=== PATIENT | female | born 1990 ===

== ENCOUNTER 2018-01-18 23:50 | Inpatient (IN) | payer BC, OTHER ==
--- NOTE | 2018-01-19 00:55 | OBHP ---
Datetime: 01/19/2018 00:13 IP Adm Impression: Term, intrauterine ; No Active Labor; Intact Membranes IP Admit Plan: Admit to unit; Initiate labor protocol IP Admit Plan Other: cervical ripening Admit Comment, IP Provider: 27 y.o. , LMP 04/18/17, ANA 01/23/18, EGA 39w 3d, c/o LBP- crampy; and lower abdominal pain both with onset yesterday; LAP - stronger at 1600 hours, pain scale 6/10. (+ ) AFM; denies LOF, although "my underwear was moist earlier". Denies VB. care: Dr. Namrata rose; uncomplicated. Last seen 01/17/18 - cervical exam = "I was a little less than 1 cm". 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 x 3 years; together x 10. Telemetry R.N. Fam Hx: Mother alive 45 y.o. Crohn's disease. Father alive 43 y.o. h/o ND. Kellie fam(+) DM. No kn own fam h/o cancer P.E.: as above. WD in NAD. Awake, alert, oriented to time, person and place. Pleasant and coopera tive. present Assessment: 27 y.o. P1, 39w 3d. Early labor. Category 1 tracing. D/W Dr. Namrata Cruz: concern PUP PS - pt c/o itching to abdomen 01/15; and decreased FM then. Did not keep F/U visit in 48 hours - hus band was hospitalized. Will admit for delivery; cervicl ripening. Patient agrees; no questions offer ed. Receptive to epidural for pain relief. Clinically stable. Plan: 1) Admit 2) NPO 3) IVFs 4) Admission labs 5) Continuous EFM 6) Cervidil 7) Epidural, upon request 8) Anticipate vaginal delivery - as per, and discussed with, Dr. Namrata Cruz Pelvic Type - PN: Adequate Extremities - PN: Normal Abdomen - PN: Normal Back - PN: Normal Breast - PN: Not Done Lungs - PN: Normal Heart - PN: Normal Neurologic - PN: Normal HEENT - PN: Normal General - PN: Normal Presentation-Admit: Vertex FHR - Baseline A Provider: 125 Contraction Comments Provider: irregular Comments, ACOG Physical Exam: Abdomen: Gravid. Soft. Non tender All other systems reviewed and are negative Gestation - Est Wks by US: 39w 3d EGA AdmitDate IP: 39.3 Vital Signs Provider: Reviewed; Within Normal Limits IP Indication for Induction: Other IP Indication for Induction Oth: Decresaed movement IP Chief Complaint: Uterine contractions NICHD Variability Prov Fetus A: Moderate 6-25bpm NICHD Accel Fetus A IP Provider: [id number] FHR Category Provider Fetus A: Category I NICHD Decel Fetus A IP Provider: None Dilatation, Provider: 2 Effacement, Provider: 20 Station, Provider: -3 Genitourinary Exam: Normal DTRs - PN: Normal
[2018-01-19] MEDS ORDERED: Lactated Ringer's 1,000 ML IV ONE (00:56)
[2018-01-19 00:57] VITALS: BMI 34.3
--- NOTE | 2018-01-19 00:59 | OBADHP ---
Datetime: 01/19/2018 00:13 IP Admit Plan Other: cervical ripening Admit Comment, IP Provider: 27 y.o. , LMP 04/18/17, ANA 01/23/18, EGA 39w 3d, c/o LBP- crampy; and lower abdominal pain both with onset yesterday; LAP - stronger at 1600 hours, pain scale 6/10. (+ ) AFM; denies LOF, although "my underwear was moist earlier". Denies VB. care: Dr. Namrata rose; uncomplicated. Last seen 01/17/18 - cervical exam = "I was a little less than 1 cm". 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 x 3 years; together x 10. Telemetry R.N. Fam Hx: Mother alive 45 y.o. Crohn's disease. Father alive 43 y.o. h/o [place]. Pat fam(+) DM. No kn own fam h/o cancer P.E.: as above. WD in NAD. Awake, alert, oriented to time, person and place. Pleasant and coopera tive. present Assessment: 27 y.o. P1, 39w 3d. Early labor. Category 1 tracing. D/W Dr. Namrata Cruz: concern PUP PS - pt c/o itching to abdomen 01/15; and decreased FM then. Did not keep F/U visit in 48 hours - [facility] band was hospitalized. Will admit for delivery; cervicl ripening. Patient agrees; no questions offer ed. Receptive to epidural for pain relief. Clinically stable. Plan: 1) Admit 2) NPO 3) IVFs 4) Admission labs 5) Continuous EFM 6) Cervidil 7) Epidural, upon request 8) Anticipate vaginal delivery - as per, and discussed with, Dr. Namrata Cruz Pelvic Type - PN: Adequate Extremities - PN: Normal Abdomen - PN: Normal Back - PN: Normal Breast - PN: Not Done Lungs - PN: Normal Heart - PN: Normal Neurologic - PN: Normal HEENT - PN: Normal General - PN: Normal Presentation-Admit: Vertex FHR - Baseline A Provider: 125 Contraction Comments Provider: irregular Comments, ACOG Physical Exam: Abdomen: Gravid. Soft. Non tender All other systems reviewed and are negative Gestation - Est Wks by US: 39w 3d Vital Signs Provider: Reviewed; Within Normal Limits IP Chief Complaint: Uterine contractions NICHD Variability Prov Fetus A: Moderate 6-25bpm NICHD Accel Fetus A IP Provider: [id number] FHR Category Provider Fetus A: Category I NICHD Decel Fetus A IP Provider: None Dilatation, Provider: 2 Effacement, Provider: 20 Station, Provider: -3 Genitourinary Exam: Normal DTRs - PN: Normal EGA AdmitDate IP: 39.3 IP Adm Impression: Term, intrauterine ; No Active Labor; Intact Membranes IP Admit Plan: Admit to unit; Initiate labor protocol
[2018-01-19] MEDS ORDERED: Lactated Ringer's 1,000 ML IV SCH (01:00)
[2018-01-19 01:33] LABS: BASO % 0.2 % (0.0-2.0); EOS # 0.1 K/uL (0.0-0.7); EOS % 0.9 % (0.0-4.0); HEMOGLOBIN 10.8 g/dL (11.0-16.0); LYMPH # 3.2 K/uL (1.0-4.3); LYMPH % 24.9 % (20.0-40.0); MEAN CELL VOLUME 84.2 fL (81.0-99.0); MEAN CORPUSCULAR HEMOGLOBIN 28.4 pg (27.0-31.0); MEAN CORPUSCULAR HGB CONC 33.7 g/dL (33.0-37.0); MEAN PLATELET VOLUME 9.8 fL (7.2-11.7); MONO # 1.2 K/uL (0.0-0.8); MONO % 9.1 % (0.0-10.0); NEUT # 8.4 K/uL (1.8-7.0); NEUT % 64.9 % (50.0-75.0); RBC 3.79 Mil/uL (3.80-5.20); RED CELL DISTRIBUTION WIDTH 15.2 % (11.5-14.5); WHITE BLOOD COUNT 12.9 K/uL (4.8-10.8)
[2018-01-19 01:39] LABS: SQUAMOUS EPITHIAL 5 /hpf (0-5); URINE BACTERIA OCC (<OCC); URINE BILIRUBIN NEGATIVE (NEGATIVE); URINE BLOOD NEGATIVE (NEGATIVE); URINE CLARITY Clear (Clear); URINE COLOR Yellow (YELLOW); URINE GLUCOSE (UA) NORMAL (Normal); URINE LEUKOCYTE ESTERASE 1+ Leu/uL (Negative); URINE PROTEIN NEGATIVE (NEGATIVE); URINE UROBILINOGEN NORMAL mg/dL (0.2-1.0)
[2018-01-19 01:56] LABS: URIC ACID 2.2 mg/dL (2.2-7.5)
[2018-01-19 02:16] LABS: INR 0.9; PROTHROMBIN TIME 10.2 SECONDS (9.7-12.2)
[2018-01-19] MEDS ORDERED: Fentanyl/Bupivacaine HCl 250 ML EPI ONE (03:05)
[2018-01-19] MEDS ORDERED: Oxytocin 20 units in LR 2,000 ML IV ONE (08:00)
--- NOTE | 2018-01-19 08:11 | OBDS ---
DELIVERY PERSONNEL Delivery Doctor: Aiden Cruz MD MATERNAL INFORMATION Delivery Anesthesia: Epidural Medications in Delivery: Pitocin RN Comments: to a live baby girl attended to by Massiel Carcamo RN and Provider Comments: pt was fully diltaed and pushing, atrumtaic, spontanoeus deliveyr of head, no nuc jarek cord noted. atrumatic, spontanoeus delivery of anterior followed yb posterir shulder followed by delivery of body. Baby handed to RN. Light meconium noted. Cord blood and cord gases collected adn s ent x 2. Sponatenous delivery of intact placent with membranes. fundus firm. first degree perienal la ceaiotn noted and repaired iwth 3-0 chormic. Good hemosis, no cmplciatons LIve female agpars 9,9 ebl 100 ml weight 5lbs 7 ounces LABOR SUMMARY EDC: 01/23/2018 00:00 No. Babies in Womb: 1 LABOR INFORMATION Cervical Ripening Agents: Cervidil Other Ripening Agents: INSERTED VAGINALLY BY INFANT INFORMATION BABY A Gestational Age at Delivery: 39.3 IDENTIFICATION/MEDS BABY A ID Band Number: [id number] Sensor Number: [id number] WEIGHT/LENGTH BABY A Birthweight (gms): 2480 Infant Weight (lb): 5 Infant Weight (oz): 7 Length Inches: 17.75 Length cms: 45.1
[2018-01-19] MEDS ORDERED: Oxycodone/Acetaminophen 5/325 mg Tab PO PRN ×2 (08:15)
[2018-01-19] MEDS ORDERED: Benzocaine/Menthol 20%-0.5% Topical Spray (60 ml) TOP PRN (08:15)
[2018-01-19] MEDS: Multiple Vitamins Tab PO SCH (11:03)
[2018-01-20 08:32] LABS: BASO # 0.1 K/uL (0.0-0.2); BASO % 0.5 % (0.0-2.0); EOS # 0.3 K/uL (0.0-0.7); EOS % 2.2 % (0.0-4.0); HEMOGLOBIN 10.8 g/dL (11.0-16.0); LYMPH # 2.9 K/uL (1.0-4.3); LYMPH % 23.5 % (20.0-40.0); MEAN CELL VOLUME 84.9 fL (81.0-99.0); MEAN CORPUSCULAR HEMOGLOBIN 28.3 pg (27.0-31.0); MEAN CORPUSCULAR HGB CONC 33.3 g/dL (33.0-37.0); MEAN PLATELET VOLUME 9.7 fL (7.2-11.7); MONO # 1.2 K/uL (0.0-0.8); MONO % 9.2 % (0.0-10.0); NEUT # 8.1 K/uL (1.8-7.0); NEUT % 64.6 % (50.0-75.0); RBC 3.83 Mil/uL (3.80-5.20); WHITE BLOOD COUNT 12.5 K/uL (4.8-10.8)
[2018-01-20] MEDS: Multiple Vitamins Tab PO SCH (09:54)
[2018-01-21 00:06] VITALS: O2SAT 98
[2018-01-21 08:14] VITALS: BP 112/77; RESP 18; TEMP 98.2
[2018-01-21] MEDS: Multiple Vitamins Tab PO SCH (09:14)
[2018-01-21 15:34] VITALS: PULSE 80
--- NOTE | 2018-01-23 15:38 | OBPPN ---
Datetime: 01/23/2018 15:37 PP Pain Prov: Within normal limits PP Nausea Prov: Denies PP Flatus Prov: Yes PP BM Prov: No PP Breasts Prov: Normal PP Heart Prov: Normal PP Lungs Prov: Normal PP Abdomen/Uterus Prov: Normal PP Lochia Prov: Normal PP Vulva/Perineum Prov: Normal PP CVA Tenderness Prov: Normal PP Extremities Prov: Normal PP C/S Incision Prov: Not Applicable PP Progress Prov: Normal PP Impression Prov: Normal progression PP Plan Prov: Discharge IP PP Procedures: None Vital Signs Provider PP: Reviewed; Within Normal Limits Datetime: 01/23/2018 15:36 PP Progress Note Prov: Delayed etry Pt seen adn exmaien dpp#1 no omponats VSS PE see aobve a/p s/p pPD #1 doign well am cba paina gmang antic dc in am
--- NOTE | 2018-01-23 15:38 | OBDCSUM ---
Datetime: 01/21/2018 09:00 Discharge Instructions, Provider: Routine instructions given Discharge Diagnosis, Provider: Term Delivered Contraception discussed, Prov: Yes Contraception after Delivery: Not Planning to Use
--- NOTE | 2018-01-23 15:40 | OBPPN ---
Datetime: 01/23/2018 15:37 PP Progress Note Prov: Delayed entry pt seen adn emxied 01/21 no cmpliant VSS PE see aobve a/p s/p ppd #2 dc home rto 6 weke precmilton addisonve
== END 2018-01-21 10:30 | disposition home or self-care (01) | DRG 775 ==
LOC: C.EROB 23:50 → C.4D 01-19 00:30 → C.4M 01-19 10:32
PROVIDERS: ADMIT Obstetrics & Gynecology; ATTEND Obstetrics & Gynecology
PROC: 10E0XZZ Delivery of Products of Conception, External Approach (ICD-10-PCS; principal; 2018-01-19)
PROC: 3E0P7VZ Introduction of Hormone into Female Reproductive, Via Natural or Artificial Opening (ICD-10-PCS; 2018-01-19)
PROC: 0HQ9XZZ Repair Perineum Skin, External Approach (ICD-10-PCS; 2018-01-19)
DX: O77.0 Labor and delivery complicated by meconium in amniotic fluid (principal); O70.0 First degree perineal laceration during delivery; Z3A.39 39 weeks gestation of pregnancy; Z37.0 Single live birth